=== PATIENT | male | born 1950 | race Native Hawaiian/Other Pacific Islander ===

== ENCOUNTER 2023-01-05 23:11 | Emergency (ER) | payer OTHER, BC ==
[~2023-01-05] VITALS: Ht 162.6 cm; Wt 90.0 kg
[2023-01-05 23:15] VITALS: BP 151/78; TEMP 97.6
[2023-01-06 00:08] LABS: POTASSIUM 4.4 mmol/L (3.6-5.2)
[2023-01-06 00:18] LABS: PLATELET COUNT 171 K/uL (142-355)
[2023-01-06] MEDS ORDERED: [UNRECOGNIZED DRUG - OTHER] PO (06:30)
[2023-01-06] MEDS ORDERED: ALUMSUS6 PO (06:31)
[2023-01-06] MEDS ORDERED: CLIN300C PO (06:32)
[2023-01-06] MEDS ORDERED: ALPRAZOLAM PO (06:34)
[2023-01-06] MEDS ORDERED: BUSPIRONE10 MG PO (06:35)
[2023-01-06] MEDS ORDERED: MELATONIN3 M1 PO (06:36)
[2023-01-06] MEDS ORDERED: CLOP75TA2 PO (06:37)
[2023-01-06] MEDS ORDERED: METO100T37 PO (06:38)
[2023-01-06] MEDS ORDERED: PROSCAR5 MG PO (06:38)
[2023-01-06] MEDS ORDERED: TRULICITY1.5 MG/0.5 SC (06:40)
[2023-01-06] MEDS ORDERED: ONDANSETRON ODT PO (06:41)
[2023-01-06] MEDS ORDERED: ACET-206 PO (06:41)
[2023-01-06] MEDS ORDERED: ANTI-DIARRHE2 M1 PO (06:42)
[2023-01-06] MEDS ORDERED: SENNA8.8 MG/5 M PO (06:43)
[2023-01-06] MEDS ORDERED: PANTOPRAZOLE 40MG TA PO (06:44)
[2023-01-06] MEDS ORDERED: LANTUS SOL100 UNIT/M SC (06:44)
[2023-01-06] MEDS ORDERED: THIA100T8 PO (06:45)
[2023-01-06] MEDS ORDERED: TAMS0.4C PO (06:46)
[2023-01-06] MEDS ORDERED: LIPITOR10 MG PO (06:46)
[2023-01-06] MEDS ORDERED: ENTRESTO 24-261 TAB PO (06:47)
[2023-01-06] MEDS ORDERED: METF500T PO (06:47)
[2023-01-06] MEDS ORDERED: DIVALPROEX125 MG PO (06:48)
[2023-01-26] MEDS ORDERED: ACET650S18 RE (12:46)
[2023-01-26] MEDS ORDERED: METO100T37 PO (12:46)
[2023-01-26] MEDS ORDERED: NYST100016 EX (12:46)
[2023-01-26] MEDS ORDERED: THIA100T8 PO (12:46)
[2023-01-26] MEDS ORDERED: LOPE2CAP17 PO (12:46)
[2023-01-26] MEDS ORDERED: TAMS0.4C PO (12:46)
[2023-01-26] MEDS ORDERED: MEGE40TA32 PO (12:46)
[2023-01-26] MEDS ORDERED: Atorvastatin Calcium PO (12:46)
[2023-01-26] MEDS ORDERED: CLOP75TA2 PO (12:46)
[2023-01-26] MEDS ORDERED: ALUMSUS6 PO (12:46)
[2023-01-26] MEDS ORDERED: INSU100P SC (12:46)
[2023-01-26] MEDS ORDERED: Depakote Sprinkles 1 PO (12:46)
[2023-01-26] MEDS ORDERED: METF500T PO (12:46)
[2023-01-26] MEDS ORDERED: INSU-1996 SC (12:46)
[2023-01-26] MEDS ORDERED: PANTOPRAZOLE 40MG TA PO (12:46)
[2023-01-26] MEDS ORDERED: FINA5TAB2 PO (12:46)
[2023-01-26] MEDS ORDERED: ENTRESTO 49-511 TAB PO (12:46)
[2023-01-26] MEDS ORDERED: ONDA4TAB3 PO (12:46)
== END 2023-01-06 00:39 | disposition other institution (70) ==
LOC: ED 23:11
PROVIDERS: Family Medicine
DX: Z04.6 Encounter for general psychiatric examination, requested by authority (principal); G30.9 Alzheimer's disease, unspecified; F02.811 Dementia in other diseases classified elsewhere, unspecified severity, with agitation; Q21.3 Tetralogy of Fallot; K21.9 Gastro-esophageal reflux disease without esophagitis; E11.9 Type 2 diabetes mellitus without complications; Z20.822 Contact with and (suspected) exposure to COVID-19
CPT/HCPCS: 80053; 85027; 87635; 93005; 99283; J2060; U0003

== ENCOUNTER 2023-01-08 06:52 | Observation (INO) | payer OTHER, BC ==
[~2023-01-08] VITALS: Ht 172.7 cm; Wt 86.2 kg
[~2023-01-08 06:52] MED LIST: ACET-206 PO; ALPRAZOLAM PO; ALUMSUS6 PO; ANTI-DIARRHE2 M1 PO; BUSPIRONE10 MG PO; CLIN300C PO; CLOP75TA2 PO; DIVALPROEX125 MG PO; ENTRESTO 24-261 TAB PO; LANTUS SOL100 UNIT/M SC; LIPITOR10 MG PO; MELATONIN3 M1 PO; METF500T PO; METO100T37 PO; ONDANSETRON ODT PO; PANTOPRAZOLE 40MG TA PO; PROSCAR5 MG PO; SENNA8.8 MG/5 M PO; TAMS0.4C PO; THIA100T8 PO; TRULICITY1.5 MG/0.5 SC; [UNRECOGNIZED DRUG - OTHER] PO
[2023-01-08 06:55] VITALS: BP 109/52; TEMP 97.4
[2023-01-08 07:28] LABS: PLATELET COUNT 174 K/uL (142-355)
[2023-01-08 07:33] LABS: POTASSIUM 3.8 mmol/L (3.6-5.2)
[2023-01-08 10:00] VITALS: BP 160/81
[2023-01-08 14:35] VITALS: BP 167/75; TEMP 97.6; Ht 172.7 cm; Wt 86.2 kg
[2023-01-08 16:00] VITALS: BP 133/62; TEMP 97.6
[2023-01-08] MEDS ORDERED: ALPR0.5T24 PO (17:20)
[2023-01-08] MEDS ORDERED: FARXIGA10 MG PO (17:24)
[2023-01-08] MEDS ORDERED: SEROQUEL50 MG PO (17:26)
[2023-01-08 20:00] VITALS: BP 137/56; TEMP 98.3
[2023-01-08 21:08] LABS: PLATELET COUNT 155 K/uL (142-355)
[2023-01-08 21:16] LABS: POTASSIUM 3.9 mmol/L (3.6-5.2)
[2023-01-09 02:28] LABS: PLATELET COUNT 155 K/uL (142-355)
[2023-01-09 02:36] LABS: POTASSIUM 4.2 mmol/L (3.6-5.2)
[2023-01-09 03:40] VITALS: BP 94/38; TEMP 99
[2023-01-09 08:00] VITALS: BP 148/91; TEMP 97.9
[2023-01-09 11:50] VITALS: BP 179/71; TEMP 98.7
[2023-01-09 15:51] VITALS: BP 18/61; TEMP 97.6
[2023-01-09 19:52] VITALS: BP 149/68; TEMP 98.7
[2023-01-09 23:31] VITALS: BP 129/54; TEMP 97.3
[2023-01-10 03:49] VITALS: BP 154/63; TEMP 97.6
[2023-01-10 05:04] LABS: PLATELET COUNT 146 K/uL (142-355)
[2023-01-10 05:20] LABS: POTASSIUM 4.2 mmol/L (3.6-5.2)
[2023-01-10 07:50] VITALS: BP 169/75; TEMP 97.5
[2023-01-10] MEDS ORDERED: DIFLUCAN 100MG TAB PO (08:39)
[2023-01-10 12:00] VITALS: BP 128/70; TEMP 98.1
[2023-01-10] MEDS ORDERED: FLUCONAZOLE PO (14:40)
== END 2023-01-10 12:17 | disposition other institution (70) ==
LOC: ED 06:52 → MED/SURG 09:52
PROVIDERS: Family Medicine; ADMIT Internal Medicine Endocrinology, Diabetes & Metabolism; ATTEND Internal Medicine Endocrinology, Diabetes & Metabolism
DX: N17.8 Other acute kidney failure (principal); S52.691A Other fracture of lower end of right ulna, initial encounter for closed fracture; S22.41XA Multiple fractures of ribs, right side, initial encounter for closed fracture; Y92.89 Other specified places as the place of occurrence of the external cause; B37.9 Candidiasis, unspecified; R41.0 Disorientation, unspecified; G30.8 Other Alzheimer's disease; F02.818 Dementia in other diseases classified elsewhere, unspecified severity, with other behavioral disturbance; I10 Essential (primary) hypertension; K21.9 Gastro-esophageal reflux disease without esophagitis; E11.9 Type 2 diabetes mellitus without complications; E55.9 Vitamin D deficiency, unspecified; K59.09 Other constipation; E78.49 Other hyperlipidemia; Z79.01 Long term (current) use of anticoagulants; Z79.4 Long term (current) use of insulin
CPT/HCPCS: 36415; 36416; 80048; 80053; 82948; 83735; 83880; 84484; 85027; 93005; 94664; 94760; 96360; 96361; 96366; 96372; 96374; 96375; 99221; 99284; G0378; J1630; J1650; J2060; J3475